=== PATIENT | female | born 1990 | race African-American/Black ===

== ENCOUNTER 2021-01-24 01:34 | Emergency (ER) | payer OTHER ==
[~2021-01-24] VITALS: Ht 165.1 cm; Wt 64.0 kg
[2021-01-24 01:42] VITALS: BP 128/74
[2021-01-24] MEDS ORDERED: LORAZEPAM 1MG TABLET PO ONE (02:15)
[2021-01-24] MEDS ORDERED: LORA-250 MT (04:21)
== END 2021-01-24 04:53 | disposition home or self-care (01) ==
LOC: ER 01:34
DX: F41.9 Anxiety disorder, unspecified (principal)
CPT/HCPCS: 71045; 93005; 99283